=== PATIENT | male | born 1935 | race Caucasian/White ===

== ENCOUNTER 2021-05-26 11:55 | Inpatient (IN) ==
[2021-05-26] MEDS ORDERED: ACETAMINOPHEN 325 MG TABLET PO PRN (12:23)
[2021-05-26] MEDS ORDERED: LACTULOSE 20 GM/30 ML ORAL.SOL PO PRN (12:23)
[2021-05-26] MEDS ORDERED: ONDANSETRON 4 MG/2 ML VIAL IV PRN (12:23)
[2021-05-26] MEDS ORDERED: SENNOSIDES 1 TABLET PO PRN (12:23)
[2021-05-26] MEDS: 0.9 % SODIUM CHLORIDE 10 ML SYRINGE IV SCH ×2 (15:51→21:11)
[2021-05-26 16:20] LABS: Hematocrit 30.1 % (40.1-51.0); Mean Cell Volume 91.2 fL (80.0-100.0); Mean Corpuscular HGB Conc 33.2 g/dL (31.0-36.0); Mean Platelet Volume 10.4 fL (7.4-10.4); Platelet Count 234 K/mcL (140-440); Red Cell Distribution Width 13.2 % (11.5-14.5); WBC 9.6 K/mcL (4.5-11.0)
[2021-05-26 16:39] LABS: ALT/SGPT 10 U/L (<40); AST/SGOT 15 U/L (<40); Albumin 3.3 gm/dL (3.2-5.2); Alkaline Phosphatase 81 U/L (39-117); Beta Hydroxybutyrate 0.13 mmol/L (<0.27); Bilirubin,Direct < 0.2 mg/dL (0-0.3); Bilirubin,Total 0.4 mg/dL (0.1-1.0); Blood Urea Nitrogen 39 mg/dL (8-23); Calcium 8.5 mg/dL (8.6-10.4); Carbon Dioxide 22 mmol/L (22-30); Chloride 98 mmol/L (96-108); Globulin 3.2 gm/dL (2.2-3.7); Glomerular Filtration Rate 31; Glucose 94 mg/dL (70-105); Lactate Dehydrogenase 142 U/L (135-225); Phosphorous 3.7 mg/dL (2.5-4.5); Triglycerides 186 mg/dL (<150)
[2021-05-26 16:41] LABS: Estimated Average Glucose(eAG) 260 mg/dL; Hemoglobin A1C 10.7 % Hgb (4.0-6.0)
[2021-05-26] MEDS ORDERED: DEXTROSE 50% 50 ML VIAL IV PRN (18:32)
[2021-05-26] MEDS ORDERED: DEXTROSE 31 GM ORAL.SUSP PO PRN (18:32)
--- NOTE | 2021-05-26 19:04 | Internal Med History&Physical ---
HPI History of Present Illness Patient information: Note initiated : 05/26/21 at 7:00 pm Service Date, if different from initiated Date: [] Patient: Jose Martin Vang 85 y/o M admitted on 05/26/21 for DKA. Chief Complaint: [] Chief complaint: Generalized weakness History of present illness: Mr. Vang is a 85 year old male with a history of atrial fibrillation, congestive heart failure, diabetes mellitus type 2 who presented to [facility] with a chief complaint of generalized weakness and constipation. The patient was unable to take care of himself at home. The patient also had a fall on the morning of hospital admission. At [facility], the patient was found to have an elevated serum glucose of 500, elevated beta hydroxybutyrate, lactic acid of 5.5, anion gap of 19, serum creatinine of 2.3. The patient underwent a CT abdomen pelvis with IV contrast, the impression was there was a large fecal burden with no intestinal obstruction, cholelithiasis, a left adrenal gland nodule presumably stable compared to prior CT scan from 2017 and left nephrolithiasis. An EKG was reported to be normal, troponin normal, chest x-ray was reported to not show any acute changes. Based on this work-up, the patient was felt to have diabetic ketoacidosis combined with lactic acidosis as well as an acute kidney injury. [facility] was unable to admit the patient due to limited bed capacity and contacted [facility] for admission. The patient was accepted for admission at [facility]. Upon arrival, the patient is alert and oriented. Repeat lactic acid and a beta hydroxybutyrate are normal. The patient did have a elevated creatinine level of 1.9. The patient denies a history of kidney disease, this is likely to be an acute kidney injury. The patient did require a straight cath prior to transfer and another straight cath at [facility]. Apparently, the patient does have a history of urinary incontinence. CODE STATUS was discussed in detail upon arrival to [facility], the patient wishes to be a limited code. He is okay with chest compressions, cardiac shocks and vasopressors but does not want to be intubated or placed on a mechanical ventilator. Review of systems Constitutional: Positive for generalized weakness Eyes: no vision changes or pain Cardiovascular: no chest pain, no palpitations Respiratory: no cough or dyspnea Gastrointestinal: Positive for constipation, no nausea or vomiting Genitourinary: Positive for urinary incontinence Musculoskeletal: no arthralgia or myalgia Integumentary: Positive for skin tears on the left lower extremity. Neurological: no focal weakness or numbness Psychiatric: no anxiety or depression Physical exam Head: Atraumatic, normal inspection. Eyes: normal appearance, no scleral icterus. Neck: full ROM Respiratory: no respiratory distress. Cardiovascular: normal rate and rhythm, S1, S2. GI/Abdominal: Distended abdomen, soft, nontender, no guarding. Extremities: Right ankle tenderness and mild edema Neurological: CN II-XII intact, intact motor, intact sensation. Psychiatric: normal mood. Skin: Skin wounds on left lower extremity. MEDS/ALLERGIES Home Medications and Allergies Home Medications Medication Instructions Recorded Confirmed Type amiodarone 200 mg tablet 1 tab PO QDAY 05/26/21 05/26/21 History apixaban 2.5 mg tablet (Eliquis) 1 tab PO BID 05/26/21 05/26/21 History atorvastatin 40 mg tablet 1 tab PO QDAY 05/26/21 05/26/21 History blood-glucose meter (True Metrix 05/26/21 05/26/21 History Air Glucose Meter) clopidogrel 75 mg tablet 1 tab PO QDAY 05/26/21 05/26/21 History furosemide 40 mg tablet 1 tab PO QDAY 05/26/21 05/26/21 History glipizide 5 mg tablet, extended 1 tab PO BID 05/26/21 05/26/21 History release 24 hr lancets 33 gauge (TRUEplus Lancets) 05/26/21 05/26/21 History metoprolol succinate 50 mg 1 tab PO BID 05/26/21 05/26/21 History tablet,extended release 24 hr omeprazole 20 mg capsule,delayed 1 cap PO QDAY 05/26/21 05/26/21 History release potassium citrate 10 mEq (1,080 1 tab PO QDAY 05/26/21 05/26/21 History mg) tablet,extended release spironolactone 50 mg tablet 1 tab PO BID 05/26/21 05/26/21 History tamsulosin 0.4 mg capsule 1 cap PO BID 05/26/21 05/26/21 History Allergies Allergy/AdvReac Type Severity Reaction Status Date / Time No Known Allergies Allergy Verified 05/26/21 14:31 EXAM Constitutional Vitals: Temp Pulse Resp BP Pulse Ox 99.3 F H 60 20 99/41 98 05/26/21 16:01 05/26/21 18:01 05/26/21 18:01 05/26/21 18:01 05/26/21 18:01 DATA Data Completed and Pending Labs: Labs from last 24 hours 05/26/21 05/26/21 05/26/21 15:35 15:34 15:34 WBC 9.6 RBC 3.30 L Hgb 10.0 L Hct 30.1 L MCV 91.2 MCH 30.3 MCHC 33.2 RDW 13.2 Plt Count 234 MPV 10.4 Platelet Estimate Pending RBC Morphology Pending VBG Lactic Acid 1.7 Sodium 133 Potassium 3.8 Chloride 98 Carbon Dioxide 22 Anion Gap 13.0 BUN 39 H Creatinine 1.9 H GFR Calculation 31 Glucose 94 Hemoglobin A1c 10.7 H Estim Average Glucose 260 Uric Acid 8.0 Calcium 8.5 L Phosphorus 3.7 Magnesium 2.8 H Total Bilirubin 0.4 Direct Bilirubin < 0.2 GGT 16 AST 15 ALT 10 Alkaline Phosphatase 81 Lactate Dehydrogenase 142 Total Protein 6.5 Albumin 3.3 Globulin 3.2 Albumin/Globulin Ratio 1.0 Triglycerides 186 H Beta-Hydroxybutyrate 0.13 A/P Narrative A/P Narrative: Assessment: 85 year old male with a history of atrial fibrillation, congestive heart failure, diabetes mellitus type 2, GERD, left adrenal gland nodule, const ipation who presented to [facility] with a chief complaint of generalized weakness and constipation. The patient was found to have combined diabetic ketoacidosis and lactic acidosis as well as an acute kidney injury. He received IV fluids, subcutaneous insulin and was transferred to [facility] due to bed in availability at [facility]. Upon arrival, the patient is alert and oriented, DKA and lactic acidosis had resolved. CT scan prior to admission did not show any evidence of hydronephrosis. #Elevated creatinine, probably acute kidney injury versus CKD #Right ankle tenderness #Recent fall at home #Severe constipation #Type 2 diabetes mellitus #Atrial fibrillation on low-dose Eliquis #Generalized weakness #Urinary incontinence #Probable BPH Plan -Monitor renal function, received IV fluids prior to admission. -Bowel regimen. -Correction insulin SSI-medium. -Resume home amiodarone, Eliquis, atorvastatin, omeprazole, Flomax. -Holding home Plavix, metoprolol succinate, spironolactone for now. -Bladder scan/straight cath prn. -Cardiac diet. -PT -CODE STATUS: Limited -Disposition: TBD Time Spent With Patient Time: Total time spent is greater than 50% in coordination of care (as documented) at patient's floor/unit and/or counseling patient: QUALITY VTE Deep Vein Thrombosis/Pulmonary Embolism Present on Admission: No
[2021-05-26 19:07] LABS: Eosinophils % (Manual) 1 % (0-7); Lymphocytes % 5 % (15-49); Monocytes % (Manual) 5 % (1-12); Platelet Estimate NORMAL (Normal); RBC Morphology NORMAL (Normal); Segmented Neutrophils % 89 % (38-78)
[2021-05-26] MEDS ORDERED: DOCUSATE SODIUM 100 MG CAPSULE PO SCH (21:00)
[2021-05-26] MEDS: APIXABAN 5 MG TABLET PO SCH (21:02)
[2021-05-26] MEDS: TAMSULOSIN 0.4 MG CAPSULE PO SCH (21:02)
[2021-05-26] MEDS: LACTULOSE 20 GM/30 ML ORAL.SOL PO SCH (21:03)
[2021-05-26] MEDS: INSULIN LISPRO 1 UNIT/0.01 ML UNIT SQ SCH (21:11)
[2021-05-27] MEDS: 0.9 % SODIUM CHLORIDE 10 ML SYRINGE IV SCH ×3 (05:48→20:43)
[2021-05-27 06:39] LABS: Hematocrit 29.9 % (40.1-51.0); Mean Cell Volume 91.2 fL (80.0-100.0); Mean Corpuscular HGB Conc 33.4 g/dL (31.0-36.0); Mean Platelet Volume 10.4 fL (7.4-10.4); Platelet Count 245 K/mcL (140-440); RBC 3.28 M/mcL (4.63-6.08); WBC 9.4 K/mcL (4.5-11.0)
[2021-05-27 07:10] LABS: ALT/SGPT 9 U/L (<40); AST/SGOT 15 U/L (<40); Albumin 3.3 gm/dL (3.2-5.2); Albumin/Globulin Ratio 1.1 (1.0-2.3); Alkaline Phosphatase 78 U/L (39-117); Bilirubin,Direct < 0.2 mg/dL (0-0.3); Bilirubin,Total 0.4 mg/dL (0.1-1.0); Blood Urea Nitrogen 32 mg/dL (8-23); Calcium 8.6 mg/dL (8.6-10.4); Carbon Dioxide 20 mmol/L (22-30); Chloride 100 mmol/L (96-108); Globulin 3.1 gm/dL (2.2-3.7); Glomerular Filtration Rate 38; Glucose 127 mg/dL (70-105); Lactate Dehydrogenase 125 U/L (135-225); Phosphorous 4.1 mg/dL (2.5-4.5); Triglycerides 222 mg/dL (<150); Uric Acid 7.2 mg/dL (2.5-8.0)
[2021-05-27] MEDS: OMEPRAZOLE 20 MG CAPSULE PO SCH (07:48)
[2021-05-27] MEDS: INSULIN LISPRO 1 UNIT/0.01 ML UNIT SQ SCH ×4 (07:48→20:42)
[2021-05-27] MEDS: ATORVASTATIN 40 MG TABLET PO SCH (08:19)
[2021-05-27] MEDS: TAMSULOSIN 0.4 MG CAPSULE PO SCH ×2 (08:19→20:41)
[2021-05-27] MEDS: LACTULOSE 20 GM/30 ML ORAL.SOL PO SCH ×3 (08:19→20:42)
[2021-05-27] MEDS: APIXABAN 5 MG TABLET PO SCH ×2 (08:19→20:42)
[2021-05-27] MEDS: AMIODARONE HCL 200 MG TABLET PO SCH (08:19)
[2021-05-27] MEDS ORDERED: AMIODARONE HCL 200 MG TABLET PO SCH (09:00)
--- NOTE | 2021-05-27 09:47 | XRay Report ---
HISTORY: Right ankle pain FINDINGS: The ankle joint space is normal in width and alignment. There is no joint effusion. There is a medium-size spur on the plantar surface of the calcaneus but there is no associated erosion. There is a small spur along the outer border of the medial malleolus, but no arthritis in the joint space itself. No soft tissue swelling is present. IMPRESSION: Normal ankle Interpreted and Authenticated by: Santosh Self 05/27/21
[2021-05-27 10:33] LABS: Eosinophils % (Manual) 1 % (0-7); Lymphocytes % 8 % (15-49); Monocytes % (Manual) 6 % (1-12); Platelet Estimate NORMAL (Normal); RBC Morphology NORMAL (Normal); Segmented Neutrophils % 85 % (38-78)
--- NOTE | 2021-05-27 16:46 | Internal Med Progress Note ---
SUBJECTIVE Subjective Patient information: Note initiated : 05/27/21 at 4:46 pm Service Date, if different from initiated Date: [] Patient: Jose Martin Vang 85 y/o M admitted on 05/26/21 for DKA. Chief Complaint: [] Principal diagnosis: Diabetic ketoacidosis Interval history: Mr. Vang is a 85 year old male with a history of atrial fibrillation, congestive heart failure, diabetes mellitus type 2 who presented to [facility] with a chief complaint of generalized weakness and constipation. The patient was unable to take care of himself at home. The patient also had a fall on the morning of hospital admission. At [facility], the patient was found to have an elevated serum glucose of 500, elevated beta hydroxybutyrate, lactic acid of 5.5, anion gap of 19, serum creatinine of 2.3. The patient underwent a CT abdomen pelvis with IV contrast, the impression was there was a large fecal burden with no intestinal obstruction, cholelithiasis, a left adrenal gland nodule presumably stable compared to prior CT scan from 2017 and left nephrolithiasis. An EKG was reported to be normal, troponin normal, chest x-ray was reported to not show any acute changes. Based on this work-up, the patient was felt to have diabetic ketoacidosis combined with lactic acidosis as well as an acute kidney injury. [facility] was unable to admit the patient due to limited bed capacity and contacted [facility] for admission. The patient was accepted for admission at [facility]. Upon arrival, the patient is alert and oriented. Repeat lactic acid and a beta hydroxybutyrate are normal. The patient did have a elevated creatinine level of 1.9. The patient denies a history of kidney disease, this is likely to be an acute kidney injury. The patient did require a straight cath prior to transfer and another straight cath at [facility]. Apparently, the patient does have a history of urinary incontinence. CODE STATUS was discussed in detail upon arrival to [facility], the patient wishes to be a limited code. He is okay with chest compressions, cardiac shocks and vasopressors but does not want to be intubated or placed on a mechanical ventilator. 05/27 Alert and oriented, glucose stable. Had some high grade temperatures today but no fever. Renal function improving. Right ankle xray was normal, still has rigth ankle pain but able to ambulate short distances. wage conciliator showed multiple episodes of nonsustained ventricular tachycardia, will see if the patient's pacemaker can be interrogated at [facility]. Physical exam Head: Atraumatic, normal inspection. Eyes: normal appearance, no scleral icterus. Neck: full ROM Respiratory: no respiratory distress. Cardiovascular: normal rate and rhythm, S1, S2. GI/Abdominal: Distended abdomen, soft, nontender, no guarding. Extremities: Right ankle tenderness and mild edema Neurological: CN II-XII intact, intact motor, intact sensation. Psychiatric: normal mood. Skin: Skin wounds on left lower extremity. Constitutional Vitals: Vital Signs Temp Pulse Resp BP Pulse Ox 98.8 F 59 L 18 111/45 93 05/27/21 16:01 05/27/21 16:05 05/27/21 16:05 05/27/21 16:01 05/27/21 16:05 Period Temp Pulse Resp BP Sys/[place] Pulse Ox Last 24 Hr 98.6 F-99.8 F 39-76 10-24 87-120/41-97 87-99 Intake and Output 05/27/21 05/27/21 05/27/21 05:59 13:59 21:59 Output Total 77 2 Balance -77 -2 Intake & Output: Intake & Output 05/27/21 05/27/21 05/27/21 05:59 13:59 21:59 Output Total 77 2 Balance -77 -2 Output: Void Amount 75 # of times incontinent of urine 2 2 Other: Stool Size Large # Voids 1 # Bowel Movements 1 OBJ DATA Labs CBC & Chem 7: 05/27/21 04:58 05/27/21 04:59 Labs: Abnormal Lab Results 05/27/21 05/27/21 05/27/21 04:59 04:59 04:58 RBC 3.28 L Hgb 10.0 L Hct 29.9 L Seg Neutrophils % 85 H Lymphocytes % 8 L Carbon Dioxide 20 L BUN 32 H Creatinine 1.6 H Glucose 127 H Hemoglobin A1c Calcium Magnesium 2.7 H Lactate Dehydrogenase 125 L C-Reactive Protein 4.00 H Triglycerides 222 H 05/26/21 05/26/21 15:35 15:34 RBC 3.30 L Hgb 10.0 L Hct 30.1 L Seg Neutrophils % 89 H Lymphocytes % 5 L Carbon Dioxide BUN 39 H Creatinine 1.9 H Glucose Hemoglobin A1c 10.7 H Calcium 8.5 L Magnesium 2.8 H Lactate Dehydrogenase C-Reactive Protein Triglycerides 186 H Meds: Medications Acetaminophen (Acetaminophen 325 Mg Tablet) 650 mg PO Q6HP PRN; Protocol PRN Reason: Per Pain Protocol/Fever > 101 [facility] ([facility] H[facility] 200 Mg Tablet) [facility] Admin: 05/27/21 08:19 Dose: 200 mg Documented by: Apixaban (Apixaban 5 Mg Tablet) 2.5 mg PO BID [facility] Last Admin: 05/27/21 08:19 Dose: 2.5 mg Documented by: Atorvastatin Calcium (Atorvastatin 40 Mg Tablet) 40 mg PO QDAY [facility] Last Admin: 05/27/21 08:19 Dose: 40 mg Documented by: Dextrose (Dextrose 50% 50 Ml Vial) 0 ml IV UD PRN PRN Reason: Hypoglycemia Diagnostic Test (Pha) (Accu-Chek 1 Each Strip) 1 each [facility] Last Admin: 05/27/21 12:06 Dose: 1 each Documented by: Glucose (Dextrose 31 Gm Oral.Susp) 15 gm PO PRN PRN PRN Reason: Hypoglycemia Insulin Human Lispro (Insulin Lispro 1 Unit/0.01 Ml Unit) 0 unit SQ [facility]; Protocol Last Admin: 05/27/21 12:08 Dose: 8 units Documented by: Lactulose (Lactulose 20 Gm/30 Ml Oral.Hien) 20 gm PO TID [facility] Last Admin: 05/27/21 14:52 Dose: 20 gm Documented by: Omeprazole (Omeprazole 20 Mg Capsule) 20 mg PO ACB [facility] Last Admin: 05/27/21 07:48 Dose: 20 mg Documented by: Ondansetron HCl (Ondansetron 4 Mg/2 Ml Vial) 4 mg IV Q4HP PRN; Protocol PRN Reason: Nausea And Vomiting Senna (Sennosides 1 Tablet) 2 tab PO HSP PRN PRN Reason: Constipation Sodium Chloride (0.9 % Sodium Chloride 10 Ml Syringe) 10 ml IV Q8 [facility] Last Admin: 05/27/21 14:49 Dose: 10 ml Documented by: Tamsulosin HCl (Tamsulosin 0.4 Mg Capsule) 0.4 mg PO BID [facility] Last Admin: 05/27/21 08:19 Dose: 0.4 mg Documented by: A/P Narrative A/P Narrative: Assessment: 85 year old male with a history of atrial fibrillation, congestive heart failure, diabetes mellitus type 2, GERD, left adrenal gland nodule, constipation who presented to [facility] with a chief complaint of generalized weakness and constipation. The patient was found to have combined diabetic ketoacidosis and lactic acidosis as well as an acute kidney injury. He received IV fluids, subcutaneous insulin and was transferred to [facility] due to bed in availability at [facility]. Upon arrival, the patient is alert and oriented, DKA and lactic acidosis had resolved. CT scan prior to admission did not show any evidence of hydronephrosis. Renal function has improved since admission. The patient was also found to have right ankle pain likely from a recent fall at home, xray negative and nonsustained ventricular tachycardia. #Probable acute kidney injury versus CLEO on CKD -renal function improving #Nonsustained ventricular tachycardia #Right ankle tenderness -xray was negative #Recent fall at home #Severe constipation, improving #Type 2 diabetes mellitus -hgb A1C 10.7 #Atrial fibrillation on low-dose Eliquis #Generalized weakness #Urinary incontinence #Probable BPH Plan -Monitor renal function and urine output. -Bowel regimen. -Start Lantus 10 units HS, increase correction insulin SSI to high. -Pacemaker interrogation if able. -Could consider increasing amiodarone dose for VT. -Continue home amiodarone, Eliquis, Plavix, atorvastatin, omeprazole, Flomax. -Holding home metoprolol succinate, spironolactone for now. -Bladder scan/straight cath prn. -Diabetic diet. -PT following -CODE STATUS: Limited -Disposition: TBD, follow up with cardiology after discharge. Time Spent With Patient Time: Total time spent is greater than 50% in coordination of care (as documented) at patient's floor/unit and/or counseling patient: QUALITY VTE Deep Vein Thrombosis/Pulmonary Embolism Present on Admission: No
[2021-05-27] MEDS: SENNOSIDES 1 TABLET PO SCH (20:41)
[2021-05-27] MEDS: INSULIN GLARGINE, HUMAN 1 UNIT/0.01 ML SQ SCH (20:42)
[2021-05-28] MEDS: 0.9 % SODIUM CHLORIDE 10 ML SYRINGE IV SCH ×3 (05:49→21:26)
[2021-05-28 06:58] LABS: Hematocrit 33.1 % (40.1-51.0); Hemoglobin 10.8 g/dL (13.7-17.5); Mean Cell Volume 93.2 fL (80.0-100.0); Mean Corpuscular HGB Conc 32.6 g/dL (31.0-36.0); Mean Platelet Volume 10.3 fL (7.4-10.4); Platelet Count 236 K/mcL (140-440); RBC 3.55 M/mcL (4.63-6.08); Red Cell Distribution Width 13.2 % (11.5-14.5)
[2021-05-28] MEDS: INSULIN LISPRO 1 UNIT/0.01 ML UNIT SQ SCH ×4 (07:35→21:26)
[2021-05-28] MEDS: AMIODARONE HCL 200 MG TABLET PO SCH (07:36)
[2021-05-28] MEDS: OMEPRAZOLE 20 MG CAPSULE PO SCH (07:36)
[2021-05-28 07:59] LABS: ALT/SGPT 9 U/L (<40); AST/SGOT 14 U/L (<40); Albumin 3.3 gm/dL (3.2-5.2); Albumin/Globulin Ratio 0.9 (1.0-2.3); Alkaline Phosphatase 81 U/L (39-117); Bilirubin,Direct < 0.2 mg/dL (0-0.3); Bilirubin,Total 0.3 mg/dL (0.1-1.0); Blood Urea Nitrogen 29 mg/dL (8-23); Calcium 9.1 mg/dL (8.6-10.4); Carbon Dioxide 20 mmol/L (22-30); Chloride 100 mmol/L (96-108); Globulin 3.6 gm/dL (2.2-3.7); Glomerular Filtration Rate 36; Glucose 159 mg/dL (70-105); Lactate Dehydrogenase 138 U/L (135-225); Phosphorous 3.9 mg/dL (2.5-4.5); Triglycerides 163 mg/dL (<150); Uric Acid 6.9 mg/dL (2.5-8.0)
[2021-05-28] MEDS: ATORVASTATIN 40 MG TABLET PO SCH (08:40)
[2021-05-28] MEDS: LACTULOSE 20 GM/30 ML ORAL.SOL PO SCH (08:40)
[2021-05-28] MEDS: SENNOSIDES 1 TABLET PO SCH ×2 (08:40→21:26)
[2021-05-28] MEDS: TAMSULOSIN 0.4 MG CAPSULE PO SCH ×2 (08:40→21:26)
[2021-05-28] MEDS: APIXABAN 5 MG TABLET PO SCH ×2 (08:40→21:26)
[2021-05-28] MEDS: CLOPIDOGREL 75 MG TABLET PO SCH (08:40)
--- NOTE | 2021-05-28 10:44 | Internal Med Progress Note ---
SUBJECTIVE Subjective Patient information: Note initiated : 05/28/21 at 10:41 am Service Date, if different from initiated Date: [] Patient: Jose Martin Vang 85 y/o M admitted on 05/26/21 for DKA. Chief Complaint: [] Principal diagnosis: Diabetic ketoacidosis Interval history: Mr. Vang is a 85 year old male with a history of atrial fibrillation, congestive heart failure, diabetes mellitus type 2 who presented to [facility] with a chief complaint of generalized weakness and constipation. The patient was unable to take care of himself at home. The patient also had a fall on the morning of hospital admission. At [facility], the patient was found to have an elevated serum glucose of 500, elevated beta hydroxybutyrate, lactic acid of 5.5, anion gap of 19, serum creatinine of 2.3. The patient underwent a CT abdomen pelvis with IV contrast, the impression was there was a large fecal burden with no intestinal obstruction, cholelithiasis, a left adrenal gland nodule presumably stable compared to prior CT scan from 2017 and left nephrolithiasis. An EKG was reported to be normal, troponin normal, chest x-ray was reported to not show any acute changes. Based on this work-up, the patient was felt to have diabetic ketoacidosis combined with lactic acidosis as well as an acute kidney injury. [facility] was unable to admit the patient due to limited bed capacity and contacted [facility] for admission. The patient was accepted for admission at [facility]. Upon arrival, the patient is alert and oriented. Repeat lactic acid and a beta hydroxybutyrate are normal. The patient did have a elevated creatinine level of 1.9. The patient denies a history of kidney disease, this is likely to be an acute kidney injury. The patient did require a straight cath prior to transfer and another straight cath at [facility]. Apparently, the patient does have a history of urinary incontinence. CODE STATUS was discussed in detail upon arrival to [facility], the patient wishes to be a limited code. He is okay with chest compressions, cardiac shocks and vasopressors but does not want to be intubated or placed on a mechanical ventilator. 05/27 Alert and oriented, glucose stable. Had some high grade temperatures today but no fever. Renal function improving. Right ankle xray was normal, still has right ankle pain but able to ambulate short distances. 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 No major issues overnight, creatinine 1.7 today and possibly at the patient's baseline. The patient's baseline renal function is unknown but he probably has chronic kidney disease stage III. Same issues with intermittent nonsustained ventricular tachycardia on telemetry. The patient has a [employer] c ardiac pacemaker which we are unable to interrogate at [facility]. Now working on placement, transferred to [facility]. Physical exam Head: Atraumatic, normal inspection. Eyes: normal appearance, no scleral icterus. Neck: full ROM Respiratory: no respiratory distress. Cardiovascular: normal rate and rhythm, S1, S2. GI/Abdominal: Distended abdomen, soft, nontender, no guarding. Extremities: Right ankle tenderness and mild edema Neurological: CN II-XII intact, intact motor, intact sensation. Psychiatric: normal mood. Skin: Skin wounds on left lower extremity. Constitutional Vitals: Vital Signs Temp Pulse Resp BP Pulse Ox 98.2 F 56 L 20 123/62 90 05/28/21 07:01 05/28/21 08:06 05/28/21 08:06 05/28/21 07:01 05/28/21 08:06 Period Temp Pulse Resp BP Sys/[place] Pulse Ox Last 24 Hr 97.7 F-99.4 F 56-76 10-27 87-132/41-66 85-98 Intake and Output 05/27/21 05/28/21 05/28/21 21:59 05:59 13:59 Intake Total 360 100 Output Total 300 851 1 Balance 60 -751 -1 Weight 103.107 kg Intake & Output: Intake & Output 05/27/21 05/28/21 05/28/21 21:59 05:59 13:59 Intake Total 360 100 Output Total 300 851 1 Balance 60 -751 -1 Weight 103.107 kg Intake: Oral 360 100 Output: Void Amount 300 850 # of times incontinent of urine 1 1 Other: Meal Dinner Breakfast Percent of Meal Consumed 100% 100% Feeding Ability Independent Independent Urine Appearance Clear Clear Urine Color Dark Yellow Pale Stool Size Moderate Stool Color Brown Stool Consistency Formed # Bowel Movements 1 OBJ DATA Labs CBC & Chem 7: 05/28/21 05:10 05/28/21 05:10 Labs: Abnormal Lab Results 05/28/21 05/28/21 05/27/21 05:10 05:10 04:59 RBC 3.55 L Hgb 10.8 L Hct 33.1 L Seg Neutrophils % Lymphocytes % Carbon Dioxide 20 L BUN 29 H Creatinine 1.7 H Glucose 159 H Hemoglobin A1c Calcium Magnesium 2.9 H Lactate Dehydrogenase C-Reactive Protein 4.00 H Albumin/Globulin Ratio 0.9 L Triglycerides 163 H 05/27/21 05/27/21 05/26/21 04:59 04:58 15:35 RBC 3.28 L 3.30 L Hgb 10.0 L 10.0 L Hct 29.9 L 30.1 L Seg Neutrophils % 85 H 89 H Lymphocytes % 8 L 5 L Carbon Dioxide 20 L BUN 32 H Creatinine 1.6 H Glucose 127 H Hemoglobin A1c Calcium Magnesium 2.7 H Lactate Dehydrogenase 125 L C-Reactive Protein Albumin/Globulin Ratio Triglycerides 222 H 05/26/21 15:34 RBC Hgb Hct Seg Neutrophils % Lymphocytes % Carbon Dioxide BUN 39 H Creatinine 1.9 H Glucose Hemoglobin A1c 10.7 H Calcium 8.5 L Magnesium 2.8 H Lactate Dehydrogenase C-Reactive Protein Albumin/Globulin Ratio Triglycerides 186 H Meds: Medications Acetaminophen (Acetaminophen 325 Mg Tablet) 650 mg PO Q6HP PRN; Protocol PRN Reason: Per Pain Protocol/Fever > 101 Amiodarone HCl (Amiodarone Hcl 200 Mg Tablet) 200 mg PO [facility] Last Admin: 05/28/21 07:36 Dose: 200 mg Documented by: Apixaban (Apixaban 5 Mg Tablet) 2.5 mg PO BID [facility] Last Admin: 05/28/21 08:40 Dose: 2.5 mg Documented by: Atorvastatin Calcium (Atorvastatin 40 Mg Tablet) 40 mg PO QDAY [facility] Last Admin: 05/28/21 08:40 Dose: 40 mg Documented by: Clopidogrel Bisulfate (Clopidogrel 75 Mg Tablet) 75 mg PO QDAY [facility] Last Admin: 05/28/21 08:40 Dose: 75 mg Documented by: Dextrose (Dextrose 50% 50 Ml Vial) 0 ml IV UD PRN PRN Reason: Hypoglycemia Diagnostic Test (Pha) (Accu-Chek 1 Each Strip) 1 each FS [facility] Last Admin: 05/28/21 07:29 Dose: 1 each Documented by: Glucose (Dextrose 31 Gm Oral.Susp) 15 gm PO PRN PRN PRN Reason: Hypoglycemia Insulin Glargine (Insulin Glargine, Human 1 Unit/0.01 Ml) 10 unit SQ HS [facility] Last Admin: 05/27/21 20:42 Dose: 10 units Documented by: Insulin Human Lispro (Insulin Lispro 1 Unit/0.01 Ml Unit) 0 unit SQ ACHS [facility]; Protocol Last Admin: 05/28/21 07:35 Dose: 6 units Documented by: Lactulose (Lactulose 20 Gm/30 Ml Oral.Hien) 20 gm PO TID [facility] Last Admin: 05/28/21 08:40 Dose: 20 gm Documented by: Omeprazole (Omeprazole 20 Mg Capsule) 20 mg PO ACB [facility] Last Admin: 05/28/21 07:36 Dose: 20 mg Documented by: Ondansetron HCl (Ondansetron 4 Mg/2 Ml Vial) 4 mg IV Q4HP PRN; Protocol PRN Reason: Nausea And Vomiting Senna (Sennosides 1 Tablet) 2 tab PO BID [facility] Last Admin: 05/28/21 08:40 Dose: 2 tab Documented by: Sodium Chloride (0.9 % Sodium Chloride 10 Ml Syringe) 10 ml IV Q8 [facility] Last Admin: 05/28/21 05:49 Dose: 10 ml Documented by: Tamsulosin HCl (Tamsulosin 0.4 Mg Capsule) 0.4 mg PO BID [facility] Last Admin: 05/28/21 08:40 Dose: 0.4 mg Documented by: A/P Narrative A/P Narrative: Assessment: 85 year old male with a history of atrial fibrillation, congestive heart failure, diabetes mellitus type 2, GERD, left adrenal gland nodule, constipation who presented to [facility] with a chief complaint of generalized weakness and constipation. The patient was found to have combined diabetic ketoacidosis and lactic acidosis as well as an acute kidney injury. He received IV fluids, subcutaneous insulin and was transferred to [facility] due to bed in availability at [facility]. Upon arrival, the patient is alert and oriented, DKA and lactic acidosis had resolved. CT scan prior to admission did not show any evidence of hydronephrosis. Renal function has improved since admission. The patient was also found to have right ankle pain likely from a recent fall at home, xray of the ankle was negative. The patient also had intermittent nonsustained ventricular tachycardia, unable to interrogate the patient's [employer] pacemaker at [facility]. #Generalized weakness #Resolving probable acute on chronic kidney disease injury -renal function improved -baseline renal function unknown but probably CKD 3 #Nonsustained ventricular tachycardia #Right ankle tenderness -xray was negative #Recent fall at home #Severe constipation, resolved #Type 2 diabetes mellitus -hgb A1C 10.7 #Atrial fibrillation on low-dose Eliquis #Anemia, likely chronic #Urinary incontinence #Probable BPH #Left adrenal gland nodule Plan -Monitor renal function and urine output. -Bowel regimen. -Continue Lantus 10 units HS and correction insulin-high. -Resume home Toprol BID and monitor on telemetry. . -Could consider increasing amiodarone dose for VT. -Continue home amiodarone, Eliquis, Plavix, atorvastatin, omeprazole, Flomax. -Holding home spironolactone for now. -Diabetic diet. -PT following -CODE STATUS: Limited -Disposition: SNF for rehab, follow up with cardiology after discharge. Time Spent With Patient Time: Total time spent is greater than 50% in coordination of care (as documented) at patient's floor/unit and/or counseling patient: QUALITY VTE Deep Vein Thrombosis/Pulmonary Embolism Present on Admission: No
[2021-05-28 11:07] LABS: Eosinophils % (Manual) 2 % (0-7); Lymphocytes % 8 % (15-49); Monocytes % (Manual) 6 % (1-12); Platelet Estimate NORMAL (Normal); RBC Morphology NORMAL (Normal); Segmented Neutrophils % 84 % (38-78)
[2021-05-28] MEDS ORDERED: LACTULOSE 20 GM/30 ML ORAL.SOL PO PRN (11:47)
--- NOTE | 2021-05-28 13:18 | Internal Med Progress Note ---
SUBJECTIVE Subjective Patient information: Note initiated : 05/28/21 at 1:16 pm Service Date, if different from initiated Date: [] Patient: Jose Martin Vang 85 y/o M admitted on 05/26/21 for DKA. Chief Complaint: [] Principal diagnosis: Diabetic ketoacidosis Interval history: Mr. Vang is a 85 year old male with a history of atrial fibrillation, congestive heart failure, diabetes mellitus type 2 who presented to [facility] with a chief complaint of generalized weakness and constipation. The patient was unable to take care of himself at home. The patient also had a fall on the morning of hospital admission. At [facility], the patient was found to have an elevated serum glucose of 500, elevated beta hydroxybutyrate, lactic acid of 5.5, anion gap of 19, serum creatinine of 2.3. The patient underwent a CT abdomen pelvis with IV contrast, the impression was there was a large fecal burden with no intestinal obstruction, cholelithiasis, a left adrenal gland nodule presumably stable compared to prior CT scan from 2017 and left nephrolithiasis. An EKG was reported to be normal, troponin normal, chest x-ray was reported to not show any acute changes. Based on this work-up, the patient was felt to have diabetic ketoacidosis combined with lactic acidosis as well as an acute kidney injury. [facility] was unable to admit the patient due to limited bed capacity and contacted [facility] for admission. The patient was accepted for admission at [facility]. Upon arrival, the patient is alert and oriented. Repeat lactic acid and a beta hydroxybutyrate are normal. The patient did have a elevated creatinine level of 1.9. The patient denies a history of kidney disease, this is likely to be an acute kidney injury. The patient did require a straight cath prior to transfer and another straight cath at [facility]. Apparently, the patient does have a history of urinary incontinence. CODE STATUS was discussed in detail upon arrival to [facility], the patient wishes to be a limited code. He is okay with chest compressions, cardiac shocks and vasopressors but does not want to be intubated or placed on a mechanical ventilator. 05/27 Alert and oriented, glucose stable. Had some high grade temperatures today but no fever. Renal function improving. Right ankle xray was normal, still has right ankle pain but able to ambulate short distances. 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 05/28 No major issues overnight, creatinine 1.7 today and possibly at the patient's baseline. The patient's baseline renal function is unknown but he probably has chronic kidney disease stage III. Same issues with intermittent nonsustained ventricular tachycardia on telemetry. The patient has a [employer] car diac pacemaker which we are unable to interrogate at [facility]. Now working on placement, transferred to [facility]. 05/29 Constitutional Vitals: Vital Signs Temp Pulse Resp BP Pulse Ox 99.1 F H 88 16 110/50 95 05/28/21 11:41 05/28/21 09:02 05/28/21 09:02 05/28/21 11:41 05/28/21 11:41 Period Temp Pulse Resp BP Sys/[place] Pulse Ox Last 24 Hr 97.7 F-99.1 F 56-88 10-27 53-132/41-66 85-99 Intake and Output 05/27/21 05/28/21 05/28/21 21:59 05:59 13:59 Intake Total 360 100 840 Output Total 300 851 1 Balance 60 -751 839 Weight 103.107 kg Intake & Output: Intake & Output 05/27/21 05/28/21 05/28/21 21:59 05:59 13:59 Intake Total 360 100 840 Output Total 300 851 1 Balance 60 -751 839 Weight 103.107 kg Intake: Oral 360 100 840 Output: Void Amount 300 850 # of times incontinent of urine 1 1 Other: Meal Dinner Lunch Percent of Meal Consumed 100% 100% Feeding Ability Independent Independent Urine Appearance Clear Clear Urine Color Dark Yellow Pale Stool Size Moderate Stool Color Brown Stool Consistency Formed # Bowel Movements 1 Exam: General: Alert, Awake, No acute Distress Eyes/N/T: EOMI, Head/Neck: neck supple, CV: RRR, No murmurs, Pulm: Clear b/l, no wheezing/rhonchi/rales Abd: soft, nontender, mildly distended, +BS x4 Ext: no clubbing/cyanosis/edema Neuro: Alert, no focal deficits, moves all extremities, Skin: warm/dry, LE wounds OBJ DATA Labs CBC & Chem 7: 05/28/21 05:10 05/28/21 05:10 Labs: Abnormal Lab Results 05/28/21 05/28/21 05/27/21 05:10 05:10 04:59 RBC 3.55 L Hgb 10.8 L Hct 33.1 L Seg Neutrophils % 84 H Lymphocytes % 8 L Carbon Dioxide 20 L BUN 29 H Creatinine 1.7 H Glucose 159 H Hemoglobin A1c Calcium Magnesium 2.9 H Lactate Dehydrogenase C-Reactive Protein 4.00 H Albumin/Globulin Ratio 0.9 L Triglycerides 163 H 05/27/21 05/27/21 05/26/21 04:59 04:58 15:35 RBC 3.28 L 3.30 L Hgb 10.0 L 10.0 L Hct 29.9 L 30.1 L Seg Neutrophils % 85 H 89 H Lymphocytes % 8 L 5 L Carbon Dioxide 20 L BUN 32 H Creatinine 1.6 H Glucose 127 H Hemoglobin A1c Calcium Magnesium 2.7 H Lactate Dehydrogenase 125 L C-Reactive Protein Albumin/Globulin Ratio Triglycerides 222 H 05/26/21 15:34 RBC Hgb Hct Seg Neutrophils % Lymphocytes % Carbon Dioxide BUN 39 H Creatinine 1.9 H Glucose Hemoglobin A1c 10.7 H Calcium 8.5 L Magnesium 2.8 H Lactate Dehydrogenase C-Reactive Protein Albumin/Globulin Ratio Triglycerides 186 H Meds: Medications Acetaminophen (Acetaminophen 325 Mg Tablet) 650 mg PO Q6HP PRN; Protocol PRN Reason: Per Pain Protocol/Fever > 101 Amiodarone HCl (Amiodarone Hcl 200 Mg Tablet) [address] [facility] Last Admin: 05/28/21 07:36 Dose: 200 mg Documented by: Apixaban (Apixaban 5 Mg Tablet) 2.5 mg PO BID [facility] Last Admin: 05/28/21 08:40 Dose: 2.5 mg Documented by: Atorvastatin Calcium (Atorvastatin 40 Mg Tablet) 40 mg PO QDAY [facility] Last Admin: 05/28/21 08:40 Dose: 40 mg Documented by: Clopidogrel Bisulfate (Clopidogrel 75 Mg Tablet) 75 mg PO QDAY [facility] Last Admin: 05/28/21 08:40 Dose: 75 mg Documented by: Dextrose (Dextrose 50% 50 Ml Vial) 0 ml IV UD PRN PRN Reason: Hypoglycemia Diagnostic Test (Pha) (Accu-Chek 1 Each Strip) 1 each FS [facility] Last Admin: 05/28/21 11:34 Dose: 1 each Documented by: Glucose (Dextrose 31 Gm Oral.Susp) 15 gm PO PRN PRN PRN Reason: Hypoglycemia Insulin Glargine (Insulin Glargine, Human 1 Unit/0.01 Ml) 10 unit SQ HS [facility] Last Admin: 05/27/21 20:42 Dose: 10 units Documented by: Insulin Human Lispro (Insulin Lispro 1 Unit/0.01 Ml Unit) 0 unit SQ [facility]; Protocol Last Admin: 05/28/21 11:38 Dose: 12 units Documented by: Lactulose (Lactulose 20 Gm/30 Ml Oral.Hien) 20 gm PO TID PRN PRN Reason: Constipation Metoprolol Succinate (Metoprolol Succinate 50 Mg Tab.Xl.24h) 50 mg PO BID [facility] Omeprazole (Omeprazole 20 Mg Capsule) 20 mg PO ACB [facility] Last Admin: 05/28/21 07:36 Dose: 20 mg Documented by: Ondansetron HCl (Ondansetron 4 Mg/2 Ml Vial) 4 mg IV Q4HP PRN; Protocol PRN Reason: Nausea And Vomiting Senna (Sennosides 1 Tablet) 2 tab PO BID [facility] Last Admin: 05/28/21 08:40 Dose: 2 tab Documented by: Sodium Chloride (0.9 % Sodium Chloride 10 Ml Syringe) 10 ml IV Q8 [facility] Last Admin: 05/28/21 05:49 Dose: 10 ml Documented by: Tamsulosin HCl (Tamsulosin 0.4 Mg Capsule) 0.4 mg PO BID [facility] Last Admin: 05/28/21 08:40 Dose: 0.4 mg Documented by: A/P Narrative A/P Narrative: A: #Generalized weakness/Recent fall at home: #Resolving probable CLEO on probable CKD III: -renal function improved #Nonsustained ventricular tachycardia: on BB, follows with cardio #Atrial fibrillation: on low-dose Eliquis & BB #Right ankle tenderness: ?gout -xray was negative #Severe constipation:resolved #Type 2 diabetes mellitus -hgb A1C 10.7 #Anemia, likely chronic: #Urinary incontinence #Probable BPH #GERD: #Left adrenal gland nodule Plan: -Monitor renal function and urine output. -Bowel regimen -Continue Lantus 10 units HS and correction insulin-high -Resume home Toprol BID and monitor on telemetry; could consider increasing amiodarone dose for VT. -Continue home amiodarone, Eliquis, Plavix, atorvastatin, omeprazole, Flomax -Holding home spironolactone for now -PT following -Disposition: SNF for rehab, follow up with cardiology after discharge. -ppx: eliquis CODE STATUS: Limited Time Spent With Patient Time: Total time spent is greater than 50% in coordination of care (as documented) at patient's floor/unit and/or counseling patient: QUALITY VTE Deep Vein Thrombosis/Pulmonary Embolism Present on Admission: No
[2021-05-28] MEDS: INSULIN GLARGINE, HUMAN 1 UNIT/0.01 ML SQ SCH (21:25)
[2021-05-28] MEDS: METOPROLOL SUCCINATE 50 MG TAB.XL.24H PO SCH (21:26)
[2021-05-29] MEDS: 0.9 % SODIUM CHLORIDE 10 ML SYRINGE IV SCH (04:13)
[2021-05-29] MEDS ORDERED: INSULIN GLARGINE, HUMAN 1 UNIT/0.01 ML SQ ONE (07:16)
--- NOTE | 2021-05-29 07:20 | Internal Med Progress Note ---
SUBJECTIVE Subjective Patient information: Note initiated : 05/29/21 at 7:16 am Service Date, if different from initiated Date: [] Patient: Jose Martin Vang 85 y/o M admitted on 05/26/21 for DKA. Chief Complaint: [] Principal diagnosis: Diabetic ketoacidosis Interval history: Mr. Vnag is a 85 year old male with a history of atrial fibrillation, congestive heart failure, diabetes mellitus type 2 who presented to [facility] with a chief complaint of generalized weakness and constipation. The patient was unable to take care of himself at home. The patient also had a fall on the morning of hospital admission. At [facility], the patient was found to have an elevated serum glucose of 500, elevated beta hydroxybutyrate, lactic acid of 5.5, anion gap of 19, serum creatinine of 2.3. The patient underwent a CT abdomen pelvis with IV contrast, the impression was there was a large fecal burden with no intestinal obstruction, cholelithiasis, a left adrenal gland nodule presumably stable compared to prior CT scan from 2017 and left nephrolithiasis. An EKG was reported to be normal, troponin normal, chest x-ray was reported to not show any acute changes. Based on this work-up, the patient was felt to have diabetic ketoacidosis combined with lactic acidosis as well as an acute kidney injury. [facility] was unable to admit the patient due to limited bed capacity and contacted [facility] for admission. The patient was accepted for admission at [facility]. Upon arrival, the patient is alert and oriented. Repeat lactic acid and a beta hydroxybutyrate are normal. The patient did have a elevated creatinine level of 1.9. The patient denies a history of kidney disease, this is likely to be an acute kidney injury. The patient did require a straight cath prior to transfer and another straight cath at [facility]. Apparently, the patient does have a history of urinary incontinence. CODE STATUS was discussed in detail upon arrival to [facility], the patient wishes to be a limited code. He is okay with chest compressions, cardiac shocks and vasopressors but does not want to be intubated or placed on a mechanical ventilator. 05/27 Alert and oriented, glucose stable. Had some high grade temperatures today but no fever. Renal function improving. Right ankle xray was normal, still has right ankle pain but able to ambulate short distances. nurse monitoring showed multiple episodes of nonsustained ventricular tachycardia, will see if the patient's pacemaker can be interrogated at [facility]. 05/28 No major issues overnight, creatinine 1.7 today and possibly at the patient's baseline. The patient's baseline renal function is unknown but he probably has chronic kidney disease stage III. Same issues with intermittent nonsustained ventricular tachycardia on telemetry. The patient has a [employer] car diac pacemaker which we are unable to interrogate at [facility]. Now working on placement, transferred to [facility]. 05/29 Constitutional Vitals: Vital Signs Temp Pulse Resp BP Pulse Ox 97.8 F 60 20 130/58 95 05/29/21 02:33 05/29/21 02:33 05/29/21 02:33 05/29/21 02:33 05/29/21 02:33 Period Temp Pulse Resp BP Sys/[place] Pulse Ox Last 24 Hr 97.8 F-99.1 F 56-88 16-20 53-130/41-60 90-99 Intake and Output 05/28/21 05/29/21 05/29/21 21:59 05:59 13:59 Intake Total 480 400 Output Total 301 2 Balance 179 398 Weight 102.739 kg Intake & Output: Intake & Output 05/28/21 05/29/21 05/29/21 21:59 05:59 13:59 Intake Total 480 400 Output Total 301 2 Balance 179 398 Weight 102.739 kg Intake: Oral 480 400 Output: Void Amount 300 # of times incontinent of urine 1 2 Other: Meal Dinner Percent of Meal Consumed 50% Feeding Ability Assist with Tray Set Up Urine Appearance Clear Urine Color Bright Yellow Stool Size Small Stool Color Brown Stool Consistency Formed Exam: General: Alert, Awake, No acute Distress Eyes/N/T: EOMI, Head/Neck: neck supple, CV: RRR, No murmurs, Pulm: Clear b/l, no wheezing/rhonchi/rales Abd: soft, nontender, mildly distended, +BS x4 Ext: no clubbing/cyanosis/edema Neuro: Alert, no focal deficits, moves all extremities, Skin: warm/dry, LE wounds OBJ DATA Labs CBC & Chem 7: 05/28/21 05:10 05/29/21 05:37 Labs: Abnormal Lab Results 05/28/21 05/28/21 05/27/21 05:10 05:10 04:59 RBC 3.55 L Hgb 10.8 L Hct 33.1 L Seg Neutrophils % 84 H Lymphocytes % 8 L Carbon Dioxide 20 L BUN 29 H Creatinine 1.7 H Glucose 159 H Hemoglobin A1c Calcium Magnesium 2.9 H Lactate Dehydrogenase C-Reactive Protein 4.00 H Albumin/Globulin Ratio 0.9 L Triglycerides 163 H 05/27/21 05/27/21 05/26/21 04:59 04:58 15:35 RBC 3.28 L 3.30 L Hgb 10.0 L 10.0 L Hct 29.9 L 30.1 L Seg Neutrophils % 85 H 89 H Lymphocytes % 8 L 5 L Carbon Dioxide 20 L BUN 32 H Creatinine 1.6 H Glucose 127 H Hemoglobin A1c Calcium Magnesium 2.7 H Lactate Dehydrogenase 125 L C-Reactive Protein Albumin/Globulin Ratio Triglycerides 222 H 05/26/21 15:34 RBC Hgb Hct Seg Neutrophils % Lymphocytes % Carbon Dioxide BUN 39 H Creatinine 1.9 H Glucose Hemoglobin A1c 10.7 H Calcium 8.5 L Magnesium 2.8 H Lactate Dehydrogenase C-Reactive Protein Albumin/Globulin Ratio Triglycerides 186 H Meds: Medications Acetaminophen (Acetaminophen 325 Mg Tablet) 650 mg PO Q6HP PRN; Protocol PRN Reason: Per Pain Protocol/Fever > 101 Amiodarone HCl (Amiodarone Hcl 200 Mg Tablet) 200 mg PO [facility] Last Admin: 05/28/21 07:36 Dose: 200 mg Documented by: Apixaban (Apixaban 5 Mg Tablet) 2.5 mg PO BID [facility] Last Admin: 05/28/21 21:26 Dose: 2.5 mg Documented by: Atorvastatin Calcium (Atorvastatin 40 Mg Tablet) 40 mg PO QDAY [facility] Last Admin: 05/28/21 08:40 Dose: 40 mg Documented by: Clopidogrel Bisulfate (Clopidogrel 75 Mg Tablet) 75 mg PO QDAY [facility] Last Admin: 05/28/21 08:40 Dose: 75 mg Documented by: Dextrose (Dextrose 50% 50 Ml Vial) 0 ml IV UD PRN PRN Reason: Hypoglycemia Diagnostic Test (Pha) (Accu-Chek 1 Each Strip) 1 each FS [facility] Last Admin: 05/28/21 21:25 Dose: 1 each Documented by: Glucose (Dextrose 31 Gm Oral.Susp) 15 gm PO PRN PRN PRN Reason: Hypoglycemia Insulin Glargine (Insulin Glargine, Human 1 Unit/0.01 Ml) 10 unit SQ HS [facility] Last Admin: 05/28/21 21:25 Dose: 10 units Documented by: Insulin Human Lispro (Insulin Lispro 1 Unit/0.01 Ml Unit) 0 unit SQ ACHS [facility]; Protocol Last Admin: 05/28/21 21:26 Dose: 9 units Documented by: Lactulose (Lactulose 20 Gm/30 Ml Oral.Hien) 20 gm PO TID PRN PRN Reason: Constipation Metoprolol Succinate (Metoprolol Succinate 50 Mg Tab.Xl.24h) 50 mg PO BID [facility] Last Admin: 05/28/21 21:26 Dose: 50 mg Documented by: Omeprazole (Omeprazole 20 Mg Capsule) 20 mg PO ACB [facility] Last Admin: 05/28/21 07:36 Dose: 20 mg Documented by: Ondansetron HCl (Ondansetron 4 Mg/2 Ml Vial) 4 mg IV Q4HP PRN; Protocol PRN Reason: Nausea And Vomiting Senna (Sennosides 1 Tablet) 2 tab PO BID [facility] Last Admin: 05/28/21 21:26 Dose: 2 tab Documented by: Sodium Chloride (0.9 % Sodium Chloride 10 Ml Syringe) 10 ml IV Q8 [facility] Last Admin: 05/29/21 04:13 Dose: 10 ml Documented by: Tamsulosin HCl (Tamsulosin 0.4 Mg Capsule) 0.4 mg PO BID [facility] Last Admin: 05/28/21 21:26 Dose: 0.4 mg Documented by: A/P Narrative A/P Narrative: A: #Generalized weakness/Recent fall at home: #Resolving probable CLEO on Likely CKD III: -renal function improved #Nonsustained ventricular tachycardia: on BB, follows with cardio #Atrial fibrillation: on low-dose Eliquis & BB #Right ankle tenderness: no fx on xray #Severe constipation:resolved #Type 2 diabetes mellitus -hgb A1C 10.7 #Anemia, likely chronic: #Urinary incontinence #Probable BPH #GERD: #Left adrenal gland nodule Plan: -Monitor renal function and urine output. -Bowel regimen -Continue Lantus 10 units HS and correction insulin-high -Resume home Toprol BID and monitor on telemetry; could consider increasing amiodarone dose for VT -Continue home amiodarone, Eliquis, Plavix, atorvastatin, omeprazole, Flomax -Holding home spironolactone for now -PT following -Disposition: SNF for rehab, follow up with cardiology after discharge. -ppx: eliquis CODE STATUS: Limited Time Spent With Patient Time: Total time spent is greater than 50% in coordination of care (as documented) at patient's floor/unit and/or counseling patient: [facility]AL[facility] VTE Deep Vein Thrombosis/Pulmonary Embolism Present on Admission: No
[2021-05-29 07:21] LABS: ALT/SGPT 10 U/L (<40); AST/SGOT 11 U/L (<40); Albumin 3.3 gm/dL (3.2-5.2); Alkaline Phosphatase 77 U/L (39-117); Bilirubin,Direct < 0.2 mg/dL (0-0.3); Bilirubin,Total 0.3 mg/dL (0.1-1.0); Blood Urea Nitrogen 25 mg/dL (8-23); Calcium 8.7 mg/dL (8.6-10.4); Carbon Dioxide 21 mmol/L (22-30); Chloride 101 mmol/L (96-108); Globulin 3.2 gm/dL (2.2-3.7); Glomerular Filtration Rate 45; Glucose 177 mg/dL (70-105); Lactate Dehydrogenase 125 U/L (135-225); Phosphorous 3.2 mg/dL (2.5-4.5); Triglycerides 180 mg/dL (<150); Uric Acid 5.8 mg/dL (2.5-8.0)
[2021-05-29] MEDS: OMEPRAZOLE 20 MG CAPSULE PO SCH (07:48)
[2021-05-29] MEDS: INSULIN LISPRO 1 UNIT/0.01 ML UNIT SQ SCH ×2 (07:49→11:22)
[2021-05-29] MEDS: AMIODARONE HCL 200 MG TABLET PO SCH (07:51)
[2021-05-29] MEDS: ATORVASTATIN 40 MG TABLET PO SCH (09:18)
[2021-05-29] MEDS: TAMSULOSIN 0.4 MG CAPSULE PO SCH (09:18)
[2021-05-29] MEDS: APIXABAN 5 MG TABLET PO SCH (09:19)
[2021-05-29] MEDS: SENNOSIDES 1 TABLET PO SCH (09:20)
[2021-05-29] MEDS: CLOPIDOGREL 75 MG TABLET PO SCH (09:20)
[2021-05-29] MEDS: METOPROLOL SUCCINATE 50 MG TAB.XL.24H PO SCH (09:21)
--- NOTE | 2021-05-29 10:24 | Discharge Summary ---
Discharge Provider Provider Patient information: Note initiated : 05/29/21 at 10:22 am Service Date, if different from initiated Date: [] Patient: Jose Martin Vang 85 y/o M admitted on 05/26/21 for DKA. Chief Complaint: [] Date of admission: 05/26/21 14:14 Discharge date: 05/29/21 Primary care physician: Alda Betts Consults: 05/28/21 15:38 Consult to Physician [CONS] Routine Comment: snf referral Consulting Provider: [facility] Reason For Exam: Physician to Consult Discharge Meds Discharge Medications Home Medications amiodarone 200 mg tablet 1 tab PO QDAY 05/26/21 [History Confirmed 05/26/21 Last Taken Unknown] apixaban 2.5 mg tablet (Eliquis) 1 tab PO BID 05/26/21 [History Confirmed 05/26/21 Last Taken Unknown] atorvastatin 40 mg tablet 1 tab PO QDAY 05/26/21 [History Confirmed 05/26/21 Last Taken Unknown] blood-glucose meter (True Metrix Air Glucose Meter) 05/26/21 [History Confirmed 05/26/21 Last Taken Unknown] clopidogrel 75 mg tablet 1 tab PO QDAY 05/26/21 [History Confirmed 05/26/21 Last Taken Unknown] furosemide 40 mg tablet 1 tab PO QDAY 05/26/21 [History Confirmed 05/26/21 Last Taken Unknown] glipizide 5 mg tablet, extended release 24 hr 1 tab PO BID 05/26/21 [History Confirmed 05/26/21 Last Taken Unknown] lancets 33 gauge (TRUEplus Lancets) 05/26/21 [History Confirmed 05/26/21 Last Taken Unknown] metoprolol succinate 50 mg tablet,extended release 24 hr 1 tab PO BID 05/26/21 [History Confirmed 05/26/21 Last Taken Unknown] omeprazole 20 mg capsule,delayed release 1 cap PO QDAY 05/26/21 [History Confirmed 05/26/21 Last Taken Unknown] potassium citrate 10 mEq (1,080 mg) tablet,extended release 1 tab PO QDAY 05/26/21 [History Confirmed 05/26/21 Last Taken Unknown] spironolactone 50 mg tablet 1 tab PO BID 05/26/21 [History Confirmed 05/26/21 Last Taken Unknown] tamsulosin 0.4 mg capsule 1 cap PO BID 05/26/21 [History Confirmed 05/26/21 Last Taken Unknown] COURSE Hospital Course Hospital course: Principal diagnosis: Diabetic ketoacidosis Interval history: Mr. Vang is a 85 year old male with a history of atrial fibrillation, congestive heart failure, diabetes mellitus type 2 who presented to [facility] with a chief complaint of generalized weakness and constipation. The patient was unable to take care of himself at home. The patient also had a fall on the morning of hospital admission. At [facility], the patient was found to have an elevated serum glucose of 500, elevated beta hydroxybutyrate, lactic acid of 5.5, anion gap of 19, serum creatinine of 2.3. The patient underwent a CT abdomen pelvis with IV contrast, the impression was there was a large fecal burden with no intestinal obstruction, chol elithiasis, a left adrenal gland nodule presumably stable compared to prior CT scan from 2017 and left nephrolithiasis. An EKG was reported to be normal, troponin normal, chest x-ray was reported to not show any acute changes. Based on this work-up, the patient was felt to have diabetic ketoacidosis combined with lactic acidosis as well as an acute kidney injury. [facility] was unable to admit the patient due to limited bed capacity and contacted [facility] for admission. The patient was accepted for admission at [facility]. Upon arrival, the patient is alert and oriented. Repeat lactic acid and a beta hydroxybutyrate are normal. The patient did have a elevated creatinine level of 1.9. The patient denies a history of kidney disease, this is likely to be an acute kidney injury. The patient did require a straight cath prior to transfer and another straight cath at [facility]. Apparently, the patient does have a history of urinary incontinence. CODE STATUS was discussed in detail upon arrival to [facility], the patient wishes to be a limited code. He is okay with chest compressions, cardiac shocks and vasopressors but does not want to be intubated or placed on a mechanical ventilator. 05/27 Alert and oriented, glucose stable. Had some high grade temperatures today but no fever. Renal function improving. Right ankle xray was normal, still has right ankle pain but able to ambulate short distances. vehicle monitor technician showed multiple episodes of nonsustained ventricular tachycardia, will see if the patient's pacemaker can be interrogated at [facility]. 05/28 No major issues overnight, creatinine 1.7 today and possibly at the patient's baseline. The patient's baseline renal function is unknown but he probably has chronic kidney disease stage III. Same issues with intermittent nonsustained ventricular tachycardia on telemetry. The patient has a [employer] cardiac pacemaker which we are unable to interrogate at [facility]. Now working on placement, transferred to [facility]. 05/29 Patient doing well, renal function improved,. A: #Generalized weakness/Recent fall at home: #Resolving probable CLEO on Likely CKD III: #Nonsustained ventricular tachycardia: on BB, follows with cardio #Atrial fibrillation: on low-dose Eliquis & BB #Right ankle tenderness: no fx on xray #Severe constipation:resolved #Type 2 diabetes mellitus -hgb A1C 10.7 #Anemia, likely chronic: #Urinary incontinence #Probable BPH #GERD: #Left adrenal gland nodule Plan: -Continue Lantus 10 units HS and correction insulin-high -Disposition: SNF for rehab, follow up with cardiology after discharge. Discharge diagnosis: Generalized weakness falling acute kidney injury nonsustained V. tach A. fi Secondary discharge diagnosis: Constipation diabetes chronic anemia BPH Time Spent with Patient Time attestation: Total time spent providing and/or coordinating discharge services: Time spent: Greater than 30 minutes EXAM Constitutional Vitals: Temp Pulse Resp BP Pulse Ox 97.4 F 60 20 120/60 94 05/29/21 07:23 05/29/21 07:23 05/29/21 07:23 05/29/21 07:23 05/29/21 07:23 Discharge Data Data Completed and Pending Labs on day of discharge: Labs from last 24 hours 05/29/21 05/28/21 05:37 05:10 Seg Neutrophils % 84 H Lymphocytes % 8 L Monocytes % (Manual) 6 Eosinophils % (Manual) 2 Platelet Estimate Normal RBC Morphology Normal Sodium 134 Potassium 4.4 Chloride 101 Carbon Dioxide 21 L Anion Gap 12.0 BUN 25 H Creatinine 1.4 H GFR Calculation 45 Glucose 177 H Uric Acid 5.8 Calcium 8.7 Phosphorus 3.2 Magnesium 2.5 Total Bilirubin 0.3 Direct Bilirubin < 0.2 GGT 19 AST 11 ALT 10 Alkaline Phosphatase 77 Lactate Dehydrogenase 125 L Total Protein 6.5 Albumin 3.3 Globulin 3.2 Albumin/Globulin Ratio 1.0 Triglycerides 180 H Discharge Plan Patient/Caregiver Discharge Instructions Activity: increase activity as tolerated Diet: Consistent Carbohydrate Activity Restrictions/Additional Instructions: Check blood glucose before meals and bring log to PCP. Prescriptions: Continued furosemide 40 mg tablet 1 tab PO QDAY 0RF atorvastatin 40 mg tablet 1 tab PO QDAY 0RF (DME) blood-glucose meter [True Metrix Air Glucose Meter] Misc MISCELLANEOUS 0RF Label Comments: [NO ORIGINAL SIG] amiodarone 200 mg tablet 1 tab PO QDAY 0RF metoprolol succinate 50 mg tablet extended release 24 hr 1 tab PO BID 0RF glipizide 5 mg tablet extended release 24 hr 1 tab PO BID 0RF clopidogrel 75 mg tablet 1 tab PO QDAY 0RF tamsulosin 0.4 mg capsule 1 cap PO BID 0RF potassium citrate 10 mEq (1,080 mg) tablet extended release 1 tab PO QDAY 0RF omeprazole 20 mg capsule,delayed release(DR/EC) 1 cap PO QDAY 0RF spironolactone 50 mg tablet 1 tab PO BID 0RF (DME) lancets [TRUEplus Lancets] 33 gauge misc topical 0RF Eliquis 2.5 mg tablet 1 tab PO BID 0RF Follow Up Plan Follow up with: Bruno Mcgee [Physician] - (Follow-up regarding pacemaker tachycardia. ) Alda Betts ARNP [Primary Care Provider] - (Hospital discharge follow-up ) Patient Disposition: Xfer SNF Prognosis: Fair Rehab Potential: Fair I certify that the patient requires SNF services: Yes Overall status at discharge: patient is progressing back to baseline Discharge Orders: Discharge Order (Routine); Ordered 05/29/21 [facility] Th[facility]/Pulmonary Embolism Present on Admission: No
== END 2021-05-29 13:00 | DRG 683 ==
LOC: ICU 14:14 → MEDSUR 05-28 13:29
PROVIDERS: ADMIT Internal Medicine; ATTEND Internal Medicine